=== PATIENT | female | born 1955 | race American Indian/Alaskan Native ===

== ENCOUNTER 2016-11-20 08:50 | Outpatient (CLI) | payer OTHER ==
--- NOTE | 2016-11-20 15:37 | Mammography Report ---
BILATERAL DIGITAL SCREENING MAMMOGRAM with CAD: 11/20/16 CLINICAL: Routine screening. COMPARISON:None available. However, a prior mammogram was apparently done at [facility]. FINDINGS: The breasts are heterogeneously dense, which may obscure small masses. A right asymmetry requires comparison with a prior mammogram or additional imaging.No architectural distortion or suspicious calcifications.The left breast is negative. IMPRESSION: Right asymmetry requiring further evaluation. BI-RADS CATEGORY: 0 -- Additional Evaluation Required RECOMMENDATION: Comparison with a previous mammogram. We will attempt to obtain a prior mammogram from [facility]. If we do not obtain a prior mammogram for comparison within 30 days, a revised report will be issued recommending a recall. Please be advised that the patient should not schedule an appointment for return until adequate time (at least 2 weeks) has passed for us to obtain the prior mammogram. ACR BI-RADS MAMMOGRAPHIC CODES: 0 = Needs additional imaging evaluation; 1 = Negative; 2 = Benign; 3 = Probably benign; 4 = Suspicious; 5 = Malignant; 6 = Known biopsy-proven malignancy COMMENT: 1. Dense breast tissue, i.e., adenosis, fibrocystic changes, etc., may obscure an underlying neoplasm. 2. Approximately 10% of cancers are not detected with mammography. 3. A negative mammography report should not delay biopsy if a clinically suspicious mass is present. COMMENT: Patient follow-up letters are generated via our frenting application.
== END 2016-11-20 08:51 | disposition home or self-care (01) ==
LOC: SPVWC 08:50
DX: Z12.31 Encounter for screening mammogram for malignant neoplasm of breast (principal)
CPT/HCPCS: 77067; G0202

== ENCOUNTER 2017-03-31 15:28 | Outpatient (CLI) | payer OTHER ==
[2017-03-31 16:29] LABS: Blood Urea Nitrogen 15 mg/dL (7-17)
[2017-03-31] MEDS ORDERED: NACL ONE (17:19)
--- NOTE | 2017-03-31 19:02 | Cat Scan Report ---
FINAL REPORT EXAM: CT ABDOMEN PELVIS W CON HISTORY: VENOUS INSUFFICIENCY CHRONIC PERIPHERAL/LYMPHEDEMA TECHNIQUE: Standard enhanced CT of the abdomen and pelvis. Delayed imaging through the kidneys and bladder were obtained. Coronal and sagittal reconstruction was also performed. Contrast: 100 mL Omnipaque 300 given IV. 450 cc Readi-Cat given as oral. PRIORS: None. FINDINGS: The fullness of both collecting systems on the initial set of images are proven to represent numerous bilateral peripelvic cysts on delayed images. No significant hydronephrosis is present bilaterally. Both ureters are identified in their entirety filled with contrast on delayed images. Ureteral jets bilaterally in the bladder are faintly seen. Within the abdomen, the liver, spleen, pancreas, gallbladder, and adrenal glands are unremarkable. No evidence for retroperitoneal or pelvic lymphadenopathy is seen. The small bowel loops have normal caliber. Extensive stool is present throughout the entire colon. No soft tissue mass, fluid collection, inflammatory change, or free air is seen within the abdomen or pelvis. The appendix is normal. The cecum dips deep into the right pelvis. The aorta and inferior vena cava are normal. Within the pelvis, the bladder is unremarkable. The uterus has been removed. No evidence for mass or lymphadenopathy is seen in the pelvis. Images through the upper abdomen include the lung bases which are expanded and clear. Bony structures show no focal abnormalities. Degenerative disc narrowing L5-S1 is seen with a subtle, grade 1, retrolisthesis at that level. There is also degenerative spurring anteriorly off the superior aspect of T11 level. Bilateral facet joint degenerative changes at L4-L5 and L5-S1 are seen. IMPRESSION: 1. no acute intra-abdominal process noted. 2. Bilateral peripelvic renal cysts
== END 2017-03-31 15:29 | disposition home or self-care (01) ==
LOC: CT 15:28
PROVIDERS: ATTEND Surgery Vascular Surgery
DX: I87.2 Venous insufficiency (chronic) (peripheral) (principal); N28.1 Cyst of kidney, acquired; I89.0 Lymphedema, not elsewhere classified; N94.89 Other specified conditions associated with female genital organs and menstrual cycle; M47.897 Other spondylosis, lumbosacral region; Z90.710 Acquired absence of both cervix and uterus
CPT/HCPCS: 36415; 74177; 82565; 84520; Q9967